=== PATIENT | male | born 1935 | race Caucasian/White ===

== ENCOUNTER 2017-09-02 10:23 | Day surgery (SDC) | payer OTHER ==
[2017-09-01 13:43] VITALS: BMI 25.1
--- NOTE | 2017-09-02 12:29 | HP ---
History & Physical Update - History History: No Change - Physical Physical: No Change - Assessment Assessment: No Change - Plan Plan: No Change
[2017-09-02] MEDS ORDERED: BUPIVACAINE HCL/PF 0.5% (5MG/ML) 10 ML VIAL ONE (12:40)
[2017-09-02] MEDS ORDERED: ROCURONIUM BROMIDE 50 MG/5 ML VIAL ONE (13:29)
[2017-09-02] MEDS ORDERED: PROPOFOL 20 ML ONE (13:29)
[2017-09-02] MEDS ORDERED: fentaNYL CITRATE 250 MCG/5 ML VIAL ONE (13:29)
[2017-09-02] MEDS ORDERED: LIDOCAINE HCL/PF 2% SDV 5ML VIAL ONE (13:29)
[2017-09-02] MEDS ORDERED: ceFAZolin SODIUM 1 GM VIAL IVPB ONE (13:35)
[2017-09-02] MEDS ORDERED: MIDAZOLAM HCL 2 MG/2 ML SINGLE DOSE VIAL ONE (13:36)
[2017-09-02] MEDS ORDERED: GLYCOPYRROLATE 0.2 MG/1 ML VIAL ONE (15:57)
[2017-09-02] MEDS ORDERED: NEOSTIGMINE METHYLSULFATE 0.5 MG/ML - 10 ML MDV ONE (15:57)
[2017-09-02] MEDS ORDERED: ONDANSETRON 4 MG/2 ML VIAL IVPUSH PRN (16:15)
[2017-09-02] MEDS ORDERED: PROMETHAZINE HCL 25 MG/1 ML VIAL IVPUSH PRN (16:15)
[2017-09-02] MEDS ORDERED: oxyCODONE HCL 5 MG TABLET PO PRN ×2 (16:15→16:18)
[2017-09-02] MEDS ORDERED: ACETAMINOPHEN 325 MG TABLET (FP) PO PRN (16:18)
--- NOTE | 2017-09-02 16:23 | OP ---
Operative Note - Note: Operative Date: 09/02/17 Pre-Operative Diagnosis: bilateral inguinal hernias Operation: Robotic assisted bilateral inguinal hernia repair with mesh Post-Operative Diagnosis: Same as Pre-op Surgeon: Jeff Bill Client Relationship Consultant: Angella Benz Anesthesiologist/TAIL PULLER: Allen Garg Anesthesia: General Estimated Blood Loss (mls): 10 Fluid Volume Replaced (mls): 1,500 Operative Report Dictated: Yes
--- NOTE | 2017-09-02 16:25 | SURG ---
Surgery Refining Machine Operator Note Refining Machine Operator: Angella Benz PA-C Date of Service: 09/02/17 Diagnosis: bilateral inguinal hernias Procedure: Robotic assisted bilateral inguinal hernia repair with mesh I was present for the entirety of the operative procedure. For further detail, please refer to operative report. Visit type - Case Type Case Type: Scheduled Admission - Emergency Emergency Visit: No - New patient This patient is new to me today: Yes Date on this admission: 09/02/17
[2017-09-02] MEDS ORDERED: oxyCODONE HCL 5 MG TABLET PO ONE (16:27)
[2017-09-02 18:37] VITALS: BP 140/71; PULSE 94; TEMP 97.9
[2017-09-03] MEDS ORDERED: VITAMIN C PO SCH (10:00)
[2017-09-03] MEDS ORDERED: VITAMIN D PO SCH (10:00)
[2017-09-03] MEDS ORDERED: MULTIVITAMINS (DAILY MVI) TABLET (FP) PO SCH (10:00)
== END 2017-09-02 18:25 | disposition home or self-care (01) ==
LOC: JASU-SURG 10:23
PROVIDERS: ATTEND Surgery
PROC: 0YUA4JZ Supplement Bilateral Inguinal Region with Synthetic Substitute, Percutaneous Endoscopic Approach (ICD-10-PCS; principal; 2017-09-02 12:00)
DX: K40.20 Bilateral inguinal hernia, without obstruction or gangrene, not specified as recurrent (principal)
CPT/HCPCS: 94760